=== PATIENT | female | born 1990 | race Caucasian/White ===

== ENCOUNTER 2023-06-14 13:28 | Outpatient (RCR) | payer BC, SELFPAY ==
--- NOTE | 2023-06-14 12:49 | XR_ITS ---
The [address] [address] Patient Name: CHALO OH MRN: [id number] date: 1990 Sex: F Assigned Patient Location: [facility] Current Patient Location: [facility] Accession/Order Number: [id number] Exam Date: 06/14/2023 12:53 Report Date: 06/14/2023 13:59 At the request of: GURPREET NOGUEIRA Procedure: XR acute abdomen series EXAMINATION: XR acute abdomen series HISTORY: abdominal pain R10.9 COMPARISON: No relevant comparison available. FINDINGS: LUNGS: No infiltrate, pneumothorax, or pleural effusion. MEDIASTINUM: No abnormal widening. BOWEL GAS PATTERN: Non-obstructed. No abnormal dilation or suspicious fluid levels. FREE AIR: None. CALCIFICATIONS: None significant. BONES: No fracture or visible bone lesion. OTHER: Negative. XR/XR acute abdomen series IMPRESSION: 1. No acute cardiopulmonary process. 2. No bowel obstruction or suspicious abdominal findings. Electronically authenticated by: YEVGENIY ROBERTS Date: 06/14/2023 13:59
[2023-06-14 12:51] LABS: Basophils Absolute Auto 0.1 10^3/uL (0.0-0.1); Basophils Percent Auto 0.4 % (0.2-2.0); Eosinophils Absolute Auto 0.2 10^3/uL (0.0-0.7); Eosinophils Percent Auto 1.2 % (0.9-7.0); Hematocrit 43.9 % (36.0-48.0); Hemoglobin 14.9 g/dL (12.0-16.0); Immature Granulocytes Abs Auto 0.04 10^3/uL (0.00-0.03); Immature Granulocytes Pct Auto 0.3 % (0.0-0.5); Lymphocytes Absolute Auto 2.9 10^3/uL (1.2-3.8); Lymphocytes Percent Auto 22.7 % (20.5-60.0); Mean Corpuscular HGB Conc 33.9 g/dL (29.9-35.2); Mean Corpuscular Hemoglobin 32.5 pg (26.7-34.0); Mean Corpuscular Volume 95.9 fL (81.0-99.0); Mean Platelet Volume 9.5 fL (9.5-13.5); Monocytes Absolute Auto 0.8 10^3/uL (0.3-0.8); Monocytes Percent Auto 6.4 % (1.7-12.0); Neutrophils Absolute Auto 8.9 10^3/uL (1.4-6.5); Platelet Count 371 10^3/uL (150-450); Red Blood Count 4.58 10^6/uL (4.20-5.40); Red Cell Distribution Width 11.9 % (11.0-15.0); White Blood Count 12.9 10^3/uL (4.0-11.0)
[2023-06-14 13:11] LABS: Alanine Aminotransferase 31 U/L (14-59); Albumin Globulin Ratio 0.9; Albumin Level 3.7 g/dL (3.4-5.0); Alkaline Phosphatase 67 U/L (46-116); Amylase 32 U/L (25-115); Anion Gap 12.9; Aspartate Amino Transferase 10 U/L (15-37); BUN Creatinine Ratio 20.7; Bilirubin Total 0.5 mg/dL (0.2-1.0); Calcium 9.4 mg/dL (8.5-10.1); Carbon Dioxide 28.8 mmol/L (21.0-32.0); Chloride 101 mmol/L (98-107); Estimated GFR (African America >60 (>=60); Estimated GFR (Non-African Ame >60 (>=60); Globulin 4.1 g/dL; Glucose 97 mg/dL (74-106); Potassium 3.7 mmol/L (3.5-5.1); Sodium 139 mmol/L (136-145); Total Protein 7.8 g/dL (6.4-8.2)
[2023-06-14] MEDS: 0.9 % SODIUM CHLORIDE 1,000 ML 1000 ML IV ×2 (13:16→14:17)
--- NOTE | 2023-06-14 13:30 | PC.NURSE ---
1302: Pt. to [facility] amb. for IV hydration. Seated in recliner. VSS. #22 gauge IV initiated to left ac on first attempt. Flushes easily without redness or edema. Pt. tolerated with min. c/o discomfort. IV 0.9%NS initiated at this time. Given warm blanket. Denies wanting beverage or snack due to recent nausea. 1332: Pt. tolerating IVF without c/o. Denies needs.
--- NOTE | 2023-06-14 13:43 | PC.NURSE ---
1340: Assisted pt. up to bathroom. Relays nausea and diarrhea. Voids without difficulty. 1351: Dr. Bey's office phoned and notified of above c/o. Order received.
[2023-06-14] MEDS: ONDANSETRON PF 4 MG/2 ML VIAL IV (14:04)
--- NOTE | 2023-06-14 14:04 | PC.NURSE ---
1404: Pt. medicated with Zofran 4mg IVP for c/o nausea. Assisted patient to lay in bed instead of recliner for comfort. remains at bedside.
--- NOTE | 2023-06-14 14:23 | PC.NURSE ---
1415: Warm blanket placed over pt. abdomen for comfort. IV site remains without s&s of infiltration.
--- NOTE | 2023-06-14 15:13 | PC.NURSE ---
1442: Pt.'s abdominal pain worsening. Rates 10/10. Dry heaving spitting up phlegm only. Guarding abdomen. Dr. Bey phoned and notified. Instructs this RN to transport pt. to ER. ER notified. 1446: Second IV initiated using #22 gauge to left hand on first attempt. Flushes easily. IV to left ac to SLF. IVF moved to IV in left hand. ER phoned per this RN and notified of pt. transfer. Spoke with Dr. Kline. 1455: Pt. transported to ER via w/c accompanied by . IVF cont. to infuse. 1503:Report given to ELI Wallace. Assisted pt. on to ER cart. Care relinquished.
== END 2023-06-14 15:00 | disposition admitted as inpatient to this hospital (09) ==
LOC: INF 13:28
PROVIDERS: PCP Family Medicine; Visit Provider Family Medicine
DX: R10.9 Unspecified abdominal pain (principal); R11.0 Nausea
CPT/HCPCS: 36415; 74022; 80053; 82150; 83690; 85025; 96360; 96361; 96374

== ENCOUNTER 2023-06-14 15:00 | Observation (INO) | payer BC, SELFPAY ==
[2023-06-14] VITALS (13 sets, daily range): BP systolic 100–134; BP diastolic 62–90; PULSE 75–92; RESP 14–24; TEMP 36.8–37.4; O2SAT 94–100; BMI 21.5
--- NOTE | 2023-06-14 15:10 | CT_ITS ---
The [address] [address] Patient Name: CHALO OH MRN: [id number] date: 1990 Sex: F Assigned Patient Location: ER Current Patient Location: ER Accession/Order Number: [id number] Exam Date: 06/14/2023 16:20 Report Date: 06/14/2023 17:33 At the request of: JOSEE AJ Procedure: CT abdomen pelvis w con EXAM: CT abdomen pelvis w con TECHNIQUE: Axial CT images were obtained of the abdomen and pelvis with intravenous contrast. Sagittal and coronal reformatted images were also obtained. Dose reduction techniques were achieved by using automated exposure control and/or adjustment of mA and/or kV according to patient size and/or use of iterative reconstruction technique. HISTORY: abdominal pain COMPARISON: Ultrasound 09/21/2022 FINDINGS: Lower chest: The lower lungs are clear. Liver: Intrahepatic biliary dilatation is noted liver demonstrates normal size and contour. Gallbladder: The gallbladder is unremarkable. There is no intra or extrahepatic biliary dilatation. Pancreas: The pancreas is homogeneous without evidence for mass lesion or inflammation. Spleen: The spleen is unremarkable without evidence for mass lesion. Adrenal glands: The adrenal glands are unremarkable Kidneys and bladder: The kidneys are unremarkable with no evidence for mass lesion, hydronephrosis or inflammation. The ureters demonstrate normal caliber. The urinary bladder is unremarkable. GI Tract: Thang fundoplication changes at the gastroesophageal junction. Visualized small bowel is unremarkable without evidence for obstruction or active inflammation. The appendix is significantly thickened up to 17 mm in diameter with multiple large appendicoliths. There is no significant periappendiceal inflammation.Wall thickening of the ascending colon through the transverse colon and descending colon. Reproductive: Unremarkable Lymph nodes: No retroperitoneal or abdominal lymphadenopathy. Vascular: The aorta is not dilated. Mesenteric vessels are patent. Peritoneum: Small amount of free fluid in the pelvis. Abdominal wall: Unremarkable without acute abnormality. CT/CT abdomen pelvis w con IMPRESSION: Significantly thickened appendix with multiple large appendicoliths, suspicious for appendicitis. No evidence for abscess. There is little if any periappendiceal inflammation and mucocele is also considered. Mild intrahepatic biliary dilatation without dilatation of the extrahepatic biliary tree. Etiology is unknown. MRI of liver with and without contrast could be considered to better exclude a small obstructing central lesion. Colonic wall thickening suspicious for an inflammatory or infectious colitis. Electronically authenticated by: NICHELLE YOUNG Date: 06/14/2023 17:33
[2023-06-14] MEDS: HYDROMORPHONE HCL 1 MG/ML CARTRIDGE IVP ×2 (15:29→17:59)
[2023-06-14] MEDS: METOCLOPRAMIDE HCL 10 MG/2 ML VIAL IVP (15:30)
[2023-06-14] MEDS: HYDROMORPHONE HCL 1 MG/ML CARTRIDGE IV (15:56)
[2023-06-14] MEDS: DIPHENHYDRAMINE HCL 50 MG/ML (1ML) VIAL 25 MG IV (16:15)
--- NOTE | 2023-06-14 17:41 | PC.NURSE ---
Pt complaining of return of abdominal pain . 2 x 1mg Dilaudid previously given around 90 mins ago. Pt states pain is sharp and stabbing. Dr Kline is aware and has ordered another dose of medication.
--- NOTE | 2023-06-14 18:07 | ED_ITS ---
HPI - Abdominal Pain General Chief Complaint: Abdominal Pain Stated Complaint: ABDOMINAL PAIN Time Seen by Provider: 06/14/23 15:09 Source: family Mode of arrival: Wheelchair Limitations: no limitations History of Present Illness HPI narrative: Patient underwent Thang fundoplication on Jun 01 at a hospital in [place]. She is now in town visiting family. Since the surgery she has had some abdominal discomfort and difficulty eating and drinking which, she told me, is a normal result of the surgery. She had been on Levsin and then started steroid yesterday, at the direction of her general surgeon. She woke this morning with mid abdominal pain and was nauseous and vomiting. She called her PCP and was sent to the infusion center to receive NS IVF, IV Zofran and had blood testing and xrays of the chest and abdomen. Aside from elevated WBC at 12.6k, the workup was negative. She had continued significant pain and was sent to the ED. Related Data Home Medications Medication Instructions Recorded Confirmed alprazolam 0.25 mg tablet 0.25 mg PO TID PRN anxiety 06/14/23 06/14/23 fluoxetine 20 mg capsule 20 mg PO QDAY 06/14/23 06/14/23 hyoscyamine sulfate 0.125 mg 0.125 mg PO Q8H PRN dyspepsia 06/14/23 06/14/23 sublingual tablet methylprednisolone 4 mg tablets in 4 mg PO .COMPLEX 06/14/23 06/14/23 a dose pack norethindrone 1.5 mg-ethinyl 1 tab PO QDAY 06/14/23 06/14/23 estradiol 30 mcg(21)/iron 75 mg(7) tablet (Aurovela Fe 1.5/30 (28)) Allergies Allergy/AdvReac Type Severity Reaction Status Date / Time iodine Allergy Severe Verified 06/14/23 15:22 PFSH PFS Social History Smoking status: Never smoker Exam Narrative Exam Narrative: Nurses notes and vital signs reviewed and patient is not hypoxic. afebrile General: uncomfortable. Skin: Warm, dry, no pallor noted. Eye: Pupils are equal, round and EOMI. No scleral icterus. Cardiovascular: Regular Rate and Rhythm without murmur, gallop or rub. Respiratory: No accessory muscle use or respiratory distress. Lungs are clear to auscultation, no wheezing, rales or rhonchi Back: No CVA tenderness Musculoskeletal: normal ROM GI: Abdomen is soft, non-distended. Normal bowel sounds. No masses appreciated. Umbilical tenderness to palpation with rebound, no guarding or rigidity noted. Neurological: A&O x4. No cranial nerve dysfunction observed. No truncal ataxia. Moves all extremities. Sensation intact. Psychiatric: Cooperative and interactive. Normal mood and affect. Constitutional Vital Signs, click to edit/add: Last Vital Signs Temp 98.5 F 06/14/23 17:39 Pulse 78 06/14/23 17:39 Resp 14 06/14/23 17:39 BP 119/78 06/14/23 17:39 Pulse Ox 98 06/14/23 17:39 O2 Del Method Room Air 06/14/23 17:39 Course Vital Signs Vital signs: Vital Signs Temperature 98.3 F 06/14/23 15:10 Pulse Rate 75 06/14/23 15:10 Respiratory Rate 24 06/14/23 15:10 Blood Pressure 134/90 06/14/23 15:10 Pulse Oximetry 97 06/14/23 15:10 Oxygen Delivery Method Room Air 06/14/23 15:10 Temperature 98.5 F 06/14/23 17:39 Pulse Rate 78 06/14/23 17:39 Respiratory Rate 14 06/14/23 17:39 Blood Pressure 119/78 06/14/23 17:39 Pulse Oximetry 98 06/14/23 17:39 Oxygen Delivery Method Room Air 06/14/23 17:39 MDM - Abdominal Pain MDM Narrative Medical decision making narrative: CT of the abdomen pelvis was obtained with IV contrast. Long wait to get the CT done and then a longer wait to get the reading/report from radiology. Patient found to have acute appendicitis. The report is detailed below. Call placed to the on-call general surgeon. Dr. Lancaster and I discussed the patient's case including her history of recent Thang fundoplication. The patient will be taken to surgery for appendectomy. She was given IV Invanz prior to going upstairs for surgical prep. Last oral intake was yesterday. Intrahepatic biliary dilation and colonic wall thickening were incidentally found. Patient agreeable to surgery at [facility]. Lab Data Attestation: I reviewed the patient's lab results. Imaging Data CT scan - abdomen: Radiologist's impression: Patient Name: CHALO OH MRN: [facility]:[id number] date: 1990 Sex: F Assigned Patient Location: ER Current Patient Location: ER Accession/Order Number: [id number] Exam Date: 06/14/2023 16:20 Report Date: 06/14/2023 17:33 At the request of: JOSEE AJ Procedure: CT abdomen pelvis w con EXAM: CT abdomen pelvis w con TECHNIQUE: Axial CT images were obtained of the abdomen and pelvis with intravenous contrast. Sagittal and coronal reformatted images were also obtained. Dose reduction techniques were achieved by using automated exposure control and/or adjustment of mA and/or kV according to patient size and/or use of iterative reconstruction technique. HISTORY: abdominal pain COMPARISON: Ultrasound 09/21/2022 FINDINGS: Lower chest: The lower lungs are clear. Liver: Intrahepatic biliary dilatation is noted liver demonstrates normal size and contour. Gallbladder: The gallbladder is unremarkable. There is no intra or extrahepatic biliary dilatation. Pancreas: The pancreas is homogeneous without evidence for mass lesion or inflammation. Spleen: The spleen is unremarkable without evidence for mass lesion. Adrenal glands: The adrenal glands are unremarkable Kidneys and bladder: The kidneys are unremarkable with no evidence for mass lesion, hydronephrosis or inflammation. The ureters demonstrate normal caliber. The urinary bladder is unremarkable. GI Tract: Thang fundoplication changes at the gastroesophageal junction. Visualized small bowel is unremarkable without evidence for obstruction or active inflammation. The appendix is significantly thickened up to 17 mm in diameter with multiple large appendicoliths. There is no significant periappendiceal inflammation.Wall thickening of the ascending colon through the transverse colon and descending colon. Reproductive: Unremarkable Lymph nodes: No retroperitoneal or abdominal lymphadenopathy. Vascular: The aorta is not dilated. Mesenteric vessels are patent. Peritoneum: Small amount of free fluid in the pelvis. Abdominal wall: Unremarkable without acute abnormality. IMPRESSION: Significantly thickened appendix with multiple large appendicoliths, suspicious for appendicitis. No evidence for abscess. There is little if any periappendiceal inflammation and mucocele is also considered. Mild intrahepatic biliary dilatation without dilatation of the extrahepatic biliary tree. Etiology is unknown. MRI of liver with and without contrast could be considered to better exclude a small obstructing central lesion. Colonic wall thickening suspicious for an inflammatory or infectious colitis. Electronically authenticated by: NICHELLE HANNAH Date: 06/14/2023 17:33 Discharge Plan Discharge Chief Complaint: Abdominal Pain Clinical Impression: Abdominal pain, Acute appendicitis Patient Disposition: Admitted as Observation Time of Disposition Decision: 18:00 Prescriptions / Home Meds: No Action alprazolam 0.25 mg tablet 0.25 mg PO TID PRN (Reason: anxiety) fluoxetine 20 mg capsule 20 mg PO QDAY hyoscyamine sulfate 0.125 mg tablet, sublingual 0.125 mg PO Q8H PRN (Reason: dyspepsia) methylprednisolone 4 mg tablets,dose pack 4 mg PO .COMPLEX Rx Instructions: 4 mg orally pack; norethindrone-e.estradiol-iron [Aurovela Fe 1.5/30 (28)] 1.5 mg-30 mcg (21)/75 mg (7) tablet 1 tab PO QDAY Additional Instructions: dr montana, to OR for appendectomy Referrals: Prieto Bey MD [Primary Care Provider] - 1 week
--- NOTE | 2023-06-14 18:09 | PM.HP ---
H&P: HPI History of Present Illness Chief complaint: ABDOMINAL PAIN Narrative: 32 y/o female presented to ED with 1 day history of lower abdominal pain progressively becoming worse during the day associated with nausea, vomiting and dry heaves. She rates the pain as 10/10 worse in the RLQ. she had a Thang's fundoplication performed on in [place], [place], due to GERD and Sears's esophagus. She has had diarrhea since her surgery but not prior to it. she denies melena, hematochezia or any history of IBD. She has never had a colonoscopy.She has seen the PA for surgeon since her surgery.CT scan shows changes consistent with surgery but also multiple appendocoliths and probable appendicitis. Denies any history of fever or chills. 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 Denies tobacco use but drinks socially. Colonic wall thickening [place] [address] CT Scan Report Signed Patient: CHALO OH MR#: [id number] : 1990 Acct:[id number] Age/Sex: 32 / F ADM Date: 06/14/23 Loc: ER Attending Dr: Ordering Physician: Josee Aj D.O. Date of Service: 06/14/23 Procedure(s): CT abdomen pelvis w con Accession Number(s): [id number] cc: Prieto Bey M.D.~ The [place] [id number] Patient Name: CHALO OH MRN: [id number] date: 1990 Sex: F Assigned Patient Location: ER Current Patient Location: ER Accession/Order Number: [id number] Exam Date: 06/14/2023 16:20 Report Date: 06/14/2023 17:33 At the request of: JOSEE AJ Procedure: CT abdomen pelvis w con EXAM: CT abdomen pelvis w con TECHNIQUE: Axial CT images were obtained of the abdomen and pelvis with intravenous contrast. Sagittal and coronal reformatted images were also obtained. Dose reduction techniques were achieved by using automated exposure control and/or adjustment of mA and/or kV according to patient size and/or use of iterative reconstruction technique. HISTORY: abdominal pain COMPARISON: Ultrasound 09/21/2022 FINDINGS: Lower chest: The lower lungs are clear. Liver: Intrahepatic biliary dilatation is noted liver demonstrates normal size and contour. Gallbladder: The gallbladder is unremarkable. There is no intra or extrahepatic biliary dilatation. Pancreas: The pancreas is homogeneous without evidence for mass lesion or inflammation. Spleen: The spleen is unremarkable without evidence for mass lesion. Adrenal glands: The adrenal glands are unremarkable Kidneys and bladder: The kidneys are unremarkable with no evidence for mass lesion, hydronephrosis or inflammation. The ureters demonstrate normal caliber. The urinary bladder is unremarkable. GI Tract: Thang fundoplication changes at the gastroesophageal junction. Visualized small bowel is unremarkable without evidence for obstruction or active inflammation. The appendix is significantly thickened up to 17 mm in diameter with multiple large appendicoliths. There is no significant periappendiceal inflammation.Wall thickening of the ascending colon through the transverse colon and descending colon. Reproductive: Unremarkable Lymph nodes: No retroperitoneal or abdominal lymphadenopathy. Vascular: The aorta is not dilated. Mesenteric vessels are patent. Peritoneum: Small amount of free fluid in the pelvis. Abdominal wall: Unremarkable without acute abnormality. CT/CT abdomen pelvis w con IMPRESSION: Significantly thickened appendix with multiple large appendicoliths, suspicious for appendicitis. No evidence for abscess. There is little if any periappendiceal inflammation and mucocele is also considered. Mild intrahepatic biliary dilatation without dilatation of the extrahepatic biliary tree. Etiology is unknown. MRI of liver with and without contrast could be considered to better exclude a small obstructing central lesion. Colonic wall thickening suspicious for an inflammatory or infectious colitis. Electronically authenticated by: LUIZ TELLEZ Date: 06/14/2023 17:33 Dictated By: Luiz Tellez M.D. Signed By: 06/14/231735 DD/ 32 Review of Systems ROS Status of ROS 10 or more systems reviewed and unremarkable except as noted in history and below PFSH PFS Social History Smoking status: Never smoker Meds Home Medications and Allergies Home Medications Medication Instructions Recorded Confirmed Type alprazolam 0.25 mg tablet 0.25 mg PO TID PRN anxiety 06/14/23 06/14/23 History fluoxetine 20 mg capsule 20 mg PO QDAY 06/14/23 06/14/23 History hyoscyamine sulfate 0.125 mg 0.125 mg PO Q8H PRN dyspepsia 06/14/23 06/14/23 History sublingual tablet methylprednisolone 4 mg tablets in 4 mg PO .COMPLEX 06/14/23 06/14/23 History a dose pack norethindrone 1.5 mg-ethinyl 1 tab PO QDAY 06/14/23 06/14/23 History estradiol 30 mcg(21)/iron 75 mg(7) tablet (Aurovela Fe 1.5/30 (28)) Allergies Allergy/AdvReac Type Severity Reaction Status Date / Time iodine Allergy Severe Verified 06/14/23 15:22 Exam Constitutional Vital Signs, click to edit/add: Last Vital Signs Temp 98.5 F 06/14/23 17:39 Pulse 78 06/14/23 17:39 Resp 14 06/14/23 17:39 BP 119/78 06/14/23 17:39 Pulse Ox 98 06/14/23 17:39 O2 Del Method Room Air 06/14/23 17:39 Documenting provider has reviewed patient's vital signs: yes Common normals: no apparent distress, average body habitus, oriented x3, healthy appearing, alert and well nourished General appearance: cooperative and well developed Orientation/consciousness: Yes awake, Yes oriented to person, Yes oriented to place and Yes oriented to time Respiratory Common normals: normal respiratory effort and clear to auscultation bilaterally Cardio Common normals: regular rate GI Palpation: tender Details: RLQ, McBurney's point, Rovsing's sign and other (multiple laparoscopic incisions; CDI) Neuro Common normals: oriented x3 and CN's II-XII intact bilaterally Results Imaging CT scan - abdomen: Attestation: I have reviewed the pertinent imaging results. Assessment and Plan Assessment and Plan (1) Acute appendicitis with generalized peritonitis: Assessment and Plan: 2. S/P Thang's fundoplication 06/01/23 in [place], [place] Plan Laparoscopic appendectomy with possible open appendectomy. Risk, benefits and alternatives to surgery explained to patient and mother and may include but not be limited to infection, abscess weeks to months later, blood clots to legs or lungs, heart attack, stroke, intestinal injury or . Patient and agreed to all of the above and wished to proceed. [id number]
[2023-06-14] MEDS: ERTAPENEM SODIUM 1 GM in 0.9 % SODIUM CHLORIDE 50 ML IV (18:10)
--- NOTE | 2023-06-14 19:20 | PM.GSPRC ---
Date of procedure: 06/14/23 Indications for Procedure: acute appendicitis Pre-op diagnosis: acute appendicitis Post-op diagnosis: same as pre-op Procedure: laparoscopic appendectomy Findings: acute appendicitis Anesthesia: LOGAN Surgeon: Owen Ventura Procedure Summary: LAPAROSCOPIC APPENDECTOMY The patient was taken to the operating suite, placed in the supine position and given a general anesthetic by the anesthesiologist. timeout was taken and preoperative antibiotics were given and SCDs were placed on bilateral lower extremities. Informed consent was obtained from the patient preoperatively.The abdomen was prepped and draped in the usual sterile fashion. A subumbilical incision was made down to the anterior rectus fascia and was opened in the midline and traction sutures of #0 Vicryl were placed. The peritoneal cavity was entered and the Jaron port was placed into the abdominal cavity. The abdomen was insufflated with carbon dioxide to 15 mmHg pressure. The laparoscope was then placed with an acute suppurative appendix found when the patient was placed in Trendelenburg position. A 12 mm port was placed in the left lower quadrant and another 12 mm port was placed in the right upper quadrant all under direct visualization. The base of the appendix was stapled after making a window in the mesoappendix with a curved dissector with another firing of the Endo-TITUS device.the mesoappendix was taken down with LigaSure device maintaining hemostasis. Hemostasis being maintained, the abdomen was irrigated with 500 mL of normal saline and this was aspirated. Hemostasis being maintained, all ports were then removed after the appendix had been removed in a bag. Anterior rectus fascia was closed with #0 Vicryl suture in an interrupted fashion and the other two port sites were also closed with #0 Vicryl suture in an interrupted fashion. 0.5% Marcaine 30 cc was used to anesthetize subcutaneous tissue. Skin was closed with Monocryl suture in running subcuticular fashion. Sponge, needle and instrument counts were correct. Case was clean, contaminated emergency Specimen - Appendix The patient went to recovery room in satisfactory condition. EBL less than 5 mL Clinical Program Coordinator: ISELA Arreola Estimated blood loss (mL): 5 Specimens: appendix Complications: No Condition: stable Disposition: PACU
[2023-06-14 19:32] LABS: HCG Qualitative Urine* NEGATIVE (NEGATIVE)
[2023-06-14] MEDS: LACTATED RINGER'S SOLUTION 1,000 ML 50 ML IV (19:42)
[2023-06-14] MEDS: SCOPOLAMINE 1 MG/3 DAYS TRANSDERM PATCH 1 PATCH TD (20:00)
[2023-06-14] MEDS: BUPIVACAINE HCL 0.5% PF 50 MG/10 ML VIAL 20 ML INJ (20:47)
[2023-06-15] MEDS: OXYCODONE HCL/ACETAMINOPHEN 5MG/325MG 1 TAB PO ×2 (02:16→09:33)
[2023-06-15] MEDS: LACTATED RINGER'S SOLUTION 1,000 ML 50 ML IV (05:35)
[2023-06-15 05:37] VITALS: BP 102/64; PULSE 74; RESP 16; TEMP 36.6; O2SAT 95
[2023-06-15 08:00] VITALS: RESP 16
--- OUTSIDE RECORDS SUMMARY | 2023-06-15 08:42 | XMS_ITS | CCD ---
Author Name Unknown Address [address] [place] [id number] Organization [facility] Care Team Providers Care User Interface Engineer Name Role Phone HOY, GURPREET Consulting Unavailable HOY, GURPREET Attending Unavailable HOY, GURPREET Admitting Unavailable HOY, GURPREET Primary Care Unavailable DR YEVGENIY ROBERTS Consulting Unavailable HOY, GURPREET Consulting Unavailable HOY, GURPREET Attending Unavailable HOY, GURPREET Admitting Unavailable HOY, GURPREET Primary Care Unavailable DR YEVGENIY ROBERTS Consulting Unavailable Allergies Allergy Classification Reported Allergen(s) Allergy Type Date of Onset Reaction(s) Facility (1 source) cefprozil Drug Allergy 06-06-2014 [facility] Repository (1 source) peanut allergenic extract Drug Allergy 06-06-2014 [facility] Repository Problems Active Problems Problem Classification Problem Date Documented Da te Episodic/Chronic Abdominal pain (5 sources) Right upper quadrant pain; Translations: [Unspecified abdominal pain] Onset: 09-21-2022 Episodic Past or Other Problems Problem Classification Problem Date Documented Da te Episodic/Chronic Spondylosis; intervertebral disc disorders; other back problems (4 sources) Cervicalgia; Translations: [CERVICALGIA] Onset: 12-22-2021 Episodic Results Test Name Value Interpretation Reference Range Facil ity US SINGLE QUAD RT UPPERon US SINGLE QUAD RT UPPER EXAMINATION: US SINGLE QUAD RT UPPER HISTORY: Right upper quadrant pain ; intermittent right upper quadrant pain for one month COMPARISON: No relevant comparison available. TECHNIQUE: Transabdominal evaluation of the right upper quadrant. FINDINGS: LIVER: Normal size and echotexture. Color Doppler demonstrates patent hepatic veins. PORTAL VEIN: Duplex Doppler demonstrates normal hepatopetal flow pattern with flow velocity averaging 34 cm/s. GALLBLADDER: No visible gallstones, wall thickening, or pericholecystic free fluid. Negative sonographic Maxwell's sign. BILIARY: No abnormal dilation or stones. Common bile duct diameter is within normal limits. PANCREASE: No visible mass, abnormal atrophy, or duct dilation. KIDNEY: No hydronephrosis. No visible mass or stones. Size: 9.5 x 5.3 x 4.8 cm IMPRESSION: 1. Normal right upper quadrant ultrasound. Electronically authenticated by: YEVGENIY ROBERTS Date: 2022-09-21 10:14 Normal [facility] XR CSPINE MIN 4 VIEWSon 07 XR CSPINE MIN 4 VIEWS EXAMINATION: XR CSPINE MIN 4 VIEWS HISTORY: Neck pain ; acute cervical pain since falling backwards COMPARISON: No relevant comparison available. FINDINGS: BONES: Straightening of the normal lordotic curvature. No significant spondylosis, scoliosis, fracture, or visible bony lesion. DISC SPACES: Minimal narrowing C5-C6. PARASPINOUS: Negative. No paraspinous abnormality is seen. OTHER: Negative. IMPRESSION: 1. C5-C6 minimal disc height reduction; acute versus degenerative. 2. Straightening of normal lordotic curvature; positioning versus muscle spasm. Electronically authenticated by: YEVGENIY ROBERTS Date: 2021-12-23 12:23 Normal [facility] Encounters Encounter Date Encounter Type Care Provider Facility Start: 09-21-2022 End: 09-22-2022 ambulatory [facility] Facility: Start: 12-22-2021 End: 12-23-2021 ambulatory [facility] Facility: Payers Date Payer Category Payer Unknown [id number] 1989 Unknown [id number] 1960 Unknown [id number] 1960 Unknown [id number] Summary Purpose Family History No Family History Records Found Advance Directives No Advanced Directives Records Found Additional Source Comments INFORMATION SOURCE (unrecogn ized section and content) DATE CREATED AUTHOR 10/01/[address] [facility] FOR RECORDS PERTAINING TO PATIENTS WHO ARE OR HAVE BEEN ENROLLED IN A CHEMICAL DEPENDENCY/SUBSTANCEABUSE PROGRAM, SOME INFORMATION MAY BE OMITTED. This clinical summary was aggregated from multiple sources. Caution should be exercised in using it in the provision of clinical care. This summary normalizes information from multiple sources, and as a consequence, information in this document may materially change the coding, format and clinical context of patient data. In addition, data may be omitted in some cases. CLINICAL DECISIONS SHOULD BE BASED ON THE PRIMARY CLINICAL RECORDS. [facility] [employer] [facility]. provides no warranty or guarantee of the accuracy or completeness of information in this document.
--- NOTE | 2023-07-12 07:31 | P.DS_ITS ---
DS: Providers Provider Date of admission: 06/14/23 21:42 Primary care physician: Prieto Bey MD Admitting clinician: Owen Montana Attending physician on admission: Owen Montana Attending physician on discharge: Owen Montana Discharging clinician: Owen Montana Anticipated date of discharge: 06/15/23 DS: Diagnosis Discharge Diagnosis (1) Acute appendicitis with generalized peritonitis: DS: Summary Hospital Course Hospital Course: 32-year-old female presented to the ED with right lower quadrant pain was found to have acute appendicitis. She was taken to surgery for laparoscopic appendectomy which was uneventful. She was from out of town visiting her family. She lives in [facility]. She was told to follow up with the general surgeon in her hometown. Her mother works for Dr. Bey. She had no problems and spent the night and was discharged. She was to limit her activities for the next month with no lifting greater than 5 lb. She was to resume all previous medications. Status at Discharge Functional status at discharge: independent ambulation Overall status at discharge: patient is progressing back to baseline Time Spent with Patient Time attestation: Total time spent providing and/or coordinating discharge services: Time spent: less than 30 minutes Exam Constitutional Vital Signs, click to edit/add: Last Vital Signs Temp 97.9 F 06/15/23 05:37 Pulse 74 06/15/23 05:37 Resp 16 06/15/23 08:00 BP 102/64 06/15/23 05:37 Pulse Ox 95 06/15/23 05:37 O2 Del Method Room Air 06/15/23 05:37 Discharge Plan Discharge Disposition: Home, Self-Care Condition: Good Assessment: Appendicitis was resolved. Plan of Treatment: Discharged home with postop lap appy instructions. She was to follow up with her surgeon at home. Discharge Medications: New oxycodone-acetaminophen 5-325 mg Tablet 1 tab PO Q6H PRN (Reason: Pain Scale 4-6) Qty: 8 0RF Continued alprazolam 0.25 mg tablet 0.25 mg PO TID PRN (Reason: anxiety) fluoxetine 20 mg capsule 20 mg PO QDAY hyoscyamine sulfate 0.125 mg tablet, sublingual 0.125 mg PO Q8H PRN (Reason: dyspepsia) methylprednisolone 4 mg tablets,dose pack 4 mg PO .COMPLEX Rx Instructions: 4 mg orally pack; norethindrone-e.estradiol-iron [Aurovela Fe 1.5/30 (28)] 1.5 mg-30 mcg (21)/75 mg (7) tablet 1 tab PO QDAY Activity: increase activity as tolerated Diet: advance to your usual diet Patient Instructions: Oxycodone/Acetaminophen (By mouth) (Percocet, Roxicet), Appendicitis (GEN) Activity Restrictions/Additional Instructions: dr montana, to OR for appendectomy Forms: Portal Instructions Referrals: Prieto Bey MD [Primary Care Provider] - 1 week (Patient to F/U with her PCP in [place]) Follow Up Appointments: Patient will see her PCP for a follow up appt. when she returns to her home in [place]. Discharge Date/Time: 06/15/23 09:34
== END 2023-06-15 09:34 | disposition home or self-care (01) ==
LOC: ER 18:37 → SURGOUT 19:32 → MS 21:42 → SURGOUT 06-15 08:40 → MS 06-15 08:40
PROVIDERS: Admitting Provider Surgery; Emergency Provider Emergency Medicine; PCP Family Medicine; Visit Provider Surgery
PROC: (CPT 840; principal; 2023-06-14 21:00)
DX: K35.209 Acute appendicitis with generalized peritonitis, without abscess, unspecified as to perforation (principal); Z98.890 Other specified postprocedural states; Z79.899 Other long term (current) drug therapy; R10.9 Unspecified abdominal pain; R11.0 Nausea
CPT/HCPCS: 44970; 36415; 74022; 74177; 80053; 82150; 83690; 84703; 85025; 87493; 88304; 96360; 96361; 96365; 96374; 96375; 96376; 99285; G0378; J1170; J1335; J2704; Q9967